=== PATIENT | female | born 1990 | race African-American/Black ===

== ENCOUNTER → 2016-07-04 11:34 | Emergency (ER) | payer SELFPAY ==
[~2016-07-04] VITALS: Ht 165.1 cm; Wt 64.0 kg
[~2016-07-04 11:34] MED LIST: NAPR500 PO
[2016-07-04 11:36] VITALS: BP 135/62; PULSE 74; RESP 15; TEMP 98.1; O2SAT 98
== END | disposition left against medical advice (07) ==
LOC: NED 11:34
DX: R68.89 Other general symptoms and signs (principal)
CPT/HCPCS: 99281